=== PATIENT | male | born 1945 | race Caucasian/White ===

== ENCOUNTER 2024-03-04 18:28 | Emergency (ER) | payer OTHER, MEDICARE ==
[~2024-03-04] VITALS: Ht 182.9 cm; Wt 98.0 kg
[~2024-03-04 18:28] MED LIST: ALLOPURINOL300 MG PO; IROSPAN 24/6 T1 EACH PO; LIPITOR40 MG PO; MUCINEX DM ER1 EACH PO; OMEPRAZOLE20 M1 PO; SAW PALMETTO500 MG PO; TRAZODONE HCL100 MG PO; XARELTO20 MG PO
[2024-03-04] MEDS ORDERED: DULOXETINE HCL30 MG (19:26)
[2024-03-04] MEDS ORDERED: ELIQUIS5 MG (19:26)
[2024-03-04] MEDS ORDERED: TRAMADOL HCL50 MG (19:26)
[2024-03-04] MEDS ORDERED: TAMSULOSIN HCL0.4 MG (19:27)
[2024-03-04] MEDS ORDERED: PANTOPRAZOLE SO40 MG (19:27)
[2024-03-04 19:54] LABS: HEMOGLOBIN 13.8 g/dL (12.0-18.0)
[2024-03-04 19:57] LABS: BASOPHILS 0.5 % (0-2); EOSINOPHILS 2.9 % (0-6); HEMATOCRIT 41.9 % (35.0-50.0); LYMPHOCYTES 20.5 % (24-44); MCH 30.6 (27-36); MCHC 32.9 g/dl (30-36); MONOCYTES 13.4 % (0-12); NEUTROPHILS 62.7 % (39-80); PLATELET COUNT 133 K/uL (140-440); RBC 4.51 M/ul (4.3-5.7); RDW 15.9 (10.5-15.0)
[2024-03-04 20:10] LABS: ALBUMIN 3.1 g/dL (3.4-5.0); ALBUMIN/GLOBULIN RATIO 0.62 (1.1-2.4); ANION GAP 14.2 (7-21); BILIRUBIN, TOTAL 0.7 ng/dL (0.2-1.0); BUN/CREATININE RATIO 12.78 (6.0-28.6); CALCIUM 9.7 mg/dL (8.5-10.1); CREATININE, SERUM 1.33 mg/dL (0.70-1.30); POTASSIUM 4.2 mmol/L (3.5-5.1); PROTEIN, TOTAL 8.1 g/dL (6.4-8.2)
[2024-03-04] MEDS ORDERED: BENZONATATE100 MG PO (20:59)
[2024-03-04 21:30] VITALS: BP 118/56
== END 2024-03-04 21:31 | disposition home or self-care (01) ==
LOC: ED 18:28
PROVIDERS: Emergency Medicine
DX: B34.9 Viral infection, unspecified (principal); Z79.01 Long term (current) use of anticoagulants; Z79.899 Other long term (current) drug therapy
CPT/HCPCS: 36415; 71045; 80053; 83880; 84484; 85025; 99283-25